=== PATIENT | male | born 1950 | race Caucasian/White ===

== ENCOUNTER 2018-06-03 11:29 | Observation (INO) ==
--- NOTE | 2018-06-03 11:49 | Emergency Department Report ---
Cardiac General HPI - General Stated Complaint: Decline in strength, easily fatigued, chest pressu Time Seen by Provider: 06/03/18 11:41 - History of Present Illness HPI narrative: 67-year-old male presents with chest pain and shortness of breath. Chest pain has been intermittent over the past several weeks. Shortness of breath is been increasing over the last couple months. His states that he has had worsening fatigue and exhaustion over the last couple months. Even his boss at work he said that he does not have near the energy that he did a couple months ago. He did have CABG 3 approximately 1.5 years ago. Prior to that had no significant medical issues and has had nothing new that he knows of since then. He does take metoprolol and atorvastatin. Otherwise is not on any prescription medications. He is concerned that the atorvastatin may be causing his issue. Also has concerned that when he rolls over during the chest pain episodes, he feels like pressure in his chest rolls with his heart. - Related Data Home Medications Medication Instructions Recorded Confirmed Aspirin [Jinny Chewable Aspirin] 81 mg PO DAILY 06/03/18 06/03/18 Atorvastatin [Lipitor] 40 mg PO HS 06/03/18 06/03/18 Metoprolol Tartrate [Lopressor] 12.5 mg PO BID 06/03/18 06/03/18 Allergies Allergy/AdvReac Type Severity Reaction Status Date / Time No Known Allergies Allergy Verified 06/03/18 11:56 Review of Systems All systems: reviewed and negative except as stated Physical Exam - Limitations Limitations: no limitations - General General appearance: alert - Normal Exams: Head:: Normocephalic without trauma Chest/Respirations:: Clear all perry, with good airflow, and symmetry bilaterally Cardiovascular:: Regular rate and rhythm, without murmur or gallop, Pulses 2+ all extremities, capillary refill, <2 seconds all extremities Abdomen:: Bowel sounds positive, soft, non-tender, non-distended, no hepatosplenomegaly, masses or bruits noted Neurological:: Patient is alert, and oriented, cranial nerves, motor/sensory/ cerebellar, exams w/o gross deficits, to observation Course Vital Signs Temperature 98.5 F 06/03/18 11:30 Pulse Rate 72 06/03/18 11:30 Respiratory Rate 16 06/03/18 11:30 Blood Pressure 118/73 06/03/18 11:30 Pulse Oximetry 95 06/03/18 11:30 Temperature 98.5 F 06/03/18 11:38 Pulse Rate 72 06/03/18 11:38 Respiratory Rate 16 06/03/18 11:38 Blood Pressure 118/73 06/03/18 11:41 Pulse Oximetry 95 06/03/18 11:38 Cardiac General - [facility] Narrative Medical decision making narrative: Peripheral IV placed with chest pain protocol. EKG obtained with V4 V5 minor ST depression. No other significant abnormalities noted showing acute ischemia. Cardiac enzymes returned negative with CBC and CMP appropriate. Due to patient' s history and concerns regarding EKG, I spoke with Dr. Camilo and he agreed patient was appropriate to admit. He will follow up for cardiac workup. - Differential Diagnosis Differential diagnosis: Likely: palpitations, anxiety - Lab Data Attestation: I reviewed the patient's lab results. Result diagrams: 06/03/18 11:57 06/03/18 11:57 Lab Results 06/03/18 06/03/18 Range/Units 11:57 11:57 WBC 10.0 (4.5-11.0) T/MM3 RBC 4.74 (4.50-5.90) M/MM3 Hgb 12.8 L (13.5-17.5) GM/DL Hct 39.2 L (41-53) % MCV 82.7 (80-100) UM3 MCH 27.0 (26-34) UUG MCHC 32.7 (31-37) GM/DL RDW Std Deviation 46.4 (36.9-50.2) FL Plt Count 262 (130-400) T/MM3 MPV 9.8 (9.4-12.4) UM3 Immature Gran % (Auto) 0.2 (0.0-0.5) % Neut % (Auto) 59.0 (33-66) % Lymph % (Auto) 29.4 (23-45) % Parke % (Auto) 7.6 (0-9.0) % Eos % (Auto) 3.6 (0-4) % Baso % (Auto) 0.2 (0-2) % Neut # (Auto) 5.9 (1.8-7.7) T/MM3 Lymph # (Auto) 2.9 (1-4.8) T/MM3 Parke # (Auto) 0.8 (0-0.8) T/MM3 Eos # (Auto) 0.4 (0-0.5) T/MM3 Baso # (Auto) 0.0 (0-0.2) T/MM3 Abs Immat Gran (auto) 0.02 (0.00-0.03) T/MM3 Turbidity < 20 (0-20) Sodium 144 (136-146) MEQ/L Potassium 4.3 (3.6-5) MEQ/L Chloride 107 (98-107) MEQ/L Carbon Dioxide 27 (22-30) MEQ/L Anion Gap 10 (5-15) meq/L BUN 17.0 (9-20) MG/DL Creatinine 0.9 (0.8-1.5) mg/dL Estimated Creat Clear Not performed GFR Calculation 85 (>60) mL/min BUN/Creatinine Ratio 19 (6-26) RATIO Glucose 123 H (75-110) MG/DL Calculated Osmolality 280 (261-280) MOSM/KG Calcium 9.0 (8.4-10.2) MG/DL Total Bilirubin 0.60 (0.20-1.30) MG/DL Icterus Index < 2 (0-7) AST 22 (17-59) U/L ALT 15 (1-50) U/L Alkaline Phosphatase 67 (38-126) U/L Troponin I < 0.012 (0-0.12) ng/ml NT-Pro-B Natriuret Pep 91.8 (0-175) pg/mL Total Protein 6.4 (6.3-8.2) g/dL Albumin 3.9 (3.5-5.0) g/dL Globulin 2.5 (2.4-3.6) G/DL Albumin/Globulin Ratio 1.6 (1.1-2.2) RATIO Lipase 72 (23-300) U/L Specimen Hemolysis < 15 (0-25) - Radiology Data Attestation: I reviewed the patient's radiology results. Disposition Clinical Impression: Chest pain, Coronary artery disease, History of [place] (myocardial infarction) [place] [facility] [place] Stable Prescriptions: No Action Atorvastatin [Lipitor] 40 mg PO HS Aspirin [Jinny Chewable Aspirin] 81 mg PO DAILY Metoprolol Tartrate [Lopressor] 12.5 mg PO BID Referrals: [facility] [Primary Care Provider] - Time of Disposition: 13:43 - Seen By: physician
[2018-06-03] MEDS ORDERED: SALINE FLUSH 10ml SYRINGE IVF PRN (11:57)
[2018-06-03] MEDS ORDERED: NITROGLYCERIN 0.4 MG SUBLINGUAL TABLET SL PRN (11:57)
[2018-06-03] MEDS ORDERED: GI COCKTAIL 30 ML PO ONE (11:57)
[2018-06-03] MEDS ORDERED: ASPIRIN 81 MG CHEWABLE TABLET PO ONE (11:57)
[2018-06-03] MEDS ORDERED: IOHEXOL 350mg/ml 75ml INJECTION ONE (12:22)
[2018-06-03] MEDS ORDERED: SALINE FLUSH 10ml SYRINGE ONE (12:22)
--- NOTE | 2018-06-03 12:44 | CT Scan Report ---
Indication: chest pain, dyspnea, weakness. PROCEDURE: CT angio pulm emboli: Encounter: Initial Comparison: None Technique: Axial CT pulmonary angiographic phase images were performed through the chest after the administration of intravenous contrast. Coronal and Sagittal MIP reconstructed images were created and reviewed. Automated Exposure Control and Iterative Reconstruction dose reducing techniques were utilized. Contrast: Omnipaque 350 70 mL Findings: Pulmonary arteries: Exam is diagnostic to the subsegmental pulmonary arterial level. No filling defects identified to suggest a pulmonary embolus. Other findings: Incidental note is made of an azygos fissure. Minimal dependent atelectasis. The lungs are otherwise clear. No acute pneumonia. No pleural effusion or pneumothorax. No concerning pulmonary nodules or masses. The central airways are patent. No axillary or mediastinal adenopathy. Heart size is normal. Prior CABG. The upper abdomen shows no acute findings. Small 9 mm splenic artery aneurysm. Probable parapelvic cysts in both kidneys. Impression: No pulmonary embolus or acute intrathoracic disease process seen. .
--- NOTE | 2018-06-03 13:53 | Cardiology History & Physical ---
History of Present Illness Chief complaint: chest pain and dyspnea HPI: Pt is a 67-year-old male with PMH of LA, CAD s/p CABG, and HTN presents with chest pain and shortness of breath. Chest pain has been intermittent over the past several weeks. the chest pain occurs randomly with rest and activity and becomes severe at times. Shortness of breath has been increasing over the last couple months and also occurs intermittently at rest and with activity. His states that he has had worsening fatigue and exhaustion over the last couple months. Even his boss at work has said that he does not have near the energy that he did a couple months ago. He did have CABG 3 approximately 1.5 years ago. Prior to that had no significant medical issues and has had nothing new that he knows of since then. He does take metoprolol and atorvastatin. Otherwise he is not on any prescription medications. He is concerned that the atorvastatin may be causing his issue. Also has concern that when he rolls over during the chest pain episodes, he feels like pressure in his chest rolls with his heart. He denies n/v, diaphoresis and palpitations, but does state he has periods of dizziness intermittently while experiencing his chest pain and soa. Review of Systems - Constitutional Constitutional: Present: fatigue, weakness - EENMT Eyes: Absent: change in vision Mouth/Throat: Absent: sore throat - Cardiovascular Cardiovascular: Present: dyspnea on exertion, heart murmur. Absent: chest pain , palpitations, syncope, orthopnea, edema - Respiratory Respiratory: Present: cough, dyspnea, dyspnea on exertion. Absent: wheezing, pain on inspiration - Gastrointestinal Gastrointestinal: Absent: constipation, diarrhea, nausea, vomiting - Genitourinary Genitourinary: Absent: dysuria, urinary frequency - Musculoskeletal Musculoskeletal: Present: back pain, muscle weakness. Absent: abnormal gait, muscle cramps - Integumentary/Breasts Integumentary: Absent: rash, wounds - Neurological Neurological: Present: weakness. Absent: abnormal speech, confusion - Psychiatric Psychiatric: Absent: anxiety, depression - Endocrine Endocrine: Absent: cold intolerance, heat intolerance, palpitations - Hematologic/Lymphatic Hematologic/Lymphatic: Absent: easy bleeding, easy bruising PFSH HTN CAD sp CABG 1.5 years ago Surgical History: appendectomy. cholecystectomy Family History: Patient is adopted Brother - Kidney Cancer and Parkinsons - Social History Smoking status: Never smoker Substance use type: does not use Alcohol intake: never Current residence: Apartment/Private Home Medications Home Medications Medication Instructions Recorded Confirmed Type Aspirin [Jinny Chewable Aspirin] 81 mg PO DAILY 06/03/18 06/03/18 History Atorvastatin [Lipitor] 40 mg PO HS 06/03/18 06/03/18 History Lisinopril [Prinivil] 10 mg PO DAILY #30 tab 06/04/18 Rx Nitroglycerin [Nitrostat] 0.4 mg SL Q5MIN3 PRN #20 tab 06/04/18 Rx Pantoprazole Sodium [Protonix] 20 mg PO ACB30 #30 tablet. 06/04/18 Rx Allergies Allergy/AdvReac Type Severity Reaction Status Date / Time No Known Allergies Allergy Verified 06/03/18 11:56 Exam Vital signs: Temperature 98.5 F 06/03/18 11:38 Pulse Rate 72 06/03/18 11:38 Respiratory Rate 16 06/03/18 11:38 Blood Pressure 118/73 06/03/18 11:41 Pulse Oximetry 95 06/03/18 11:38 - Constitutional no acute distress, well nourished, well developed, cooperative - Routine HEENT Exam Head: Present: normocephalic, atraumatic Eye: Present: EOMI, PERRL ENT: Present: mucous membranes moist - Routine Neck Exam Present: supple, trachea midline. Absent: JVD, carotid bruit - Routine Chest/Breast/Axilla Exam Chest wall: Absent: tenderness - Routine Respiratory Exam Present: CTA bilaterally. Absent: accessory muscle use, rhonchi, stridor, wheezes, crackles - Routine Cardiovascular Exam Present: RRR, S1, S2, bradycardia. Absent: no murmur, gallop, rubs, JVD Comments: HR 56 - Routine Abdominal Exam Present: soft, normoactive bowel sounds, non distended, non tender. Absent: guarding - Routine Extremities Exam Present: pulses intact, normal capillary refill. Absent: cyanosis, clubbing, no edema - Routine Skin Exam Present: intact, dry, warm. Absent: wounds, rash - Routine Neurological Exam Present: alert, oriented X3, CN II-XII intact - Routine Psychiatric Exam Present: normal affect, cooperative Results 06/03/18 15:44 06/03/18 15:44 Cardiac Enzymes 06/03/18 Range/Units 11:57 AST 22 (17-59) U/L Troponin I < 0.012 (0-0.12) ng/ml CBC 06/03/18 Range/Units 11:57 WBC 10.0 (4.5-11.0) T/MM3 RBC 4.74 (4.50-5.90) M/MM3 Hgb 12.8 L (13.5-17.5) GM/DL Hct 39.2 L (41-53) % Plt Count 262 (130-400) T/MM3 Neut # (Auto) 5.9 (1.8-7.7) T/MM3 Lymph # (Auto) 2.9 (1-4.8) T/MM3 Stone # (Auto) 0.8 (0-0.8) T/MM3 Eos # (Auto) 0.4 (0-0.5) T/MM3 Baso # (Auto) 0.0 (0-0.2) T/MM3 Comprehensive Metabolic Panel 06/03/18 Range/Units 11:57 Sodium 144 (136-146) MEQ/L Potassium 4.3 (3.6-5) MEQ/L Chloride 107 (98-107) MEQ/L Carbon Dioxide 27 (22-30) MEQ/L BUN 17.0 (9-20) MG/DL Creatinine 0.9 (0.8-1.5) mg/dL Glucose 123 H (75-110) MG/DL Calcium 9.0 (8.4-10.2) MG/DL AST 22 (17-59) U/L ALT 15 (1-50) U/L Alkaline Phosphatase 67 (38-126) U/L Total Protein 6.4 (6.3-8.2) g/dL Albumin 3.9 (3.5-5.0) g/dL Intake and Output 06/02/18 06/03/18 06/03/18 22:59 06:59 14:59 Other: Weight 86.1 kg Patient Weight 06/04/18 06:59 Weight 86.1 kg - Imaging and Cardiology Echo: pending EKG results: report reviewed - EKG Interpretation EKG: sinus rhythm EKG shows: sinus rhythm EKG interpretations - EKG EKG results cardiology: sinus rhythm EKG shows: sinus rhythm - Blocks, axis, hypertrophy, ST abn AV and intraventricular conduction: 1 AV block Repolarization changes or abnormalities: nonspecific abnormality, ST segment, and/or T wave - LA, pacemaker, normal Myocardial infarction: inferior LA (old age indeterminate) Hospital Course This is a general summary of the patient's hospital course. For more details refer to the complete medical record. Time spent with patient: less than 15 minutes Resuscitation Status: Full Code Assessment and Plan - Attestation Attestation Narrative: 06/11/18 16:04 Recommendation After examining the patient I agree with the above assessment. I am involved in the formulation of the patient's plan of care. - Assessment and Plan (1) Dyspnea Status: Resolved (2) Hypertension Status: Chronic (3) Chest pain Status: Resolved (4) Coronary artery disease Status: Chronic (5) History of LA (myocardial infarction) Status: Chronic - Assessment and Plan Dyspnea ECG: NSR, 1st degree AVB, inferior infarct, age undetermined. No acute ischemia CTA of chest negative Echo pending Initial troponin WNL, will trend. RCAT O2 prn to maintain sat >90% Chest Pain ECG: NSR, 1st degree AVB, inferior infarct, age undetermined. No acute ischemia CTA of chest negative Echo pending Initial troponin WNL, will trend Continue to monitor on tele CAD s/p CABG X 3 Continue ASA, BB and Statin Hypertension Continue BB History of Myocardial Infarction Continue BB, ASA and statin
[2018-06-03 16:03] VITALS: BMI 27.4
[2018-06-03] MEDS: ENOXAPARIN 100 MG/ML INJECTION SQ SCH ×2 (16:29→21:33)
[2018-06-03] MEDS ORDERED: MORPHINE SULFATE 2mg INJECTION IVP PRN (17:35)
--- NOTE | 2018-06-03 19:04 | Echocardiogram ---
DATE OF PROCEDURE June 03, 2018 This is a two-dimensional echo with spectral Doppler, color-flow and M-mode. It was obtained in a patient with chest pain. Left atrial dimension is normal. Left ventricular end-diastolic dimension is normal. Left ventricular wall thickness is normal. LV systolic function is normal with ejection fraction of 60%. Right atrium is normal. Right ventricle is normal. Aortic root dimension is normal. Mitral valve is morphologically normal with trace of mitral regurgitation. Aortic valve is a trileaflet structure with no stenosis or insufficiency. Tricuspid valve shows mild tricuspid regurgitation with low estimated pulmonary artery systolic pressure of 11. Pulmonary valve shows mild pulmonary insufficiency. There is no pericardial effusion. IMPRESSION 1. Normal LV systolic function with ejection fraction of about 60%. 2. Trace of mitral regurgitation. 3. Mild tricuspid regurgitation with low estimated pulmonary artery systolic pressure of 11. 4. Mild pulmonary insufficiency. MTDD
[2018-06-03] MEDS: LISINOPRIL 10 MG TABLET PO SCH (19:14)
[2018-06-03] MEDS: PANTOPRAZOLE 20 MG TABLET PO SCH (19:15)
[2018-06-03] MEDS ORDERED: ATORVASTATIN 40 MG TABLET PO SCH (21:00)
[2018-06-04] MEDS: PANTOPRAZOLE 20 MG TABLET PO SCH (06:05)
[2018-06-04 07:22] VITALS: BP 118/67; RESP 18; TEMP 97.1; O2SAT 96
[2018-06-04] MEDS ORDERED: ASPIRIN 81 MG CHEWABLE TABLET PO SCH (09:00)
[2018-06-04] MEDS: LISINOPRIL 10 MG TABLET PO SCH (09:20)
[2018-06-04] MEDS: ENOXAPARIN 100 MG/ML INJECTION SQ SCH (09:21)
[2018-06-04 10:37] VITALS: PULSE 58
--- NOTE | 2018-06-04 12:35 | Discharge Summary ---
<Selin Stuart - Last Filed: 06/04/18 12:40> Discharge Information Date of admission: 06/03/18 14:02 Anticipated date of discharge: 06/04/18 Attending Physician: Rohan Camilo MD Primary care physician: [facility] - Discharge Diagnosis (1) Chest pain Status: Resolved (2) Coronary artery disease Status: Chronic (3) History of WA (myocardial infarction) Status: Chronic (4) Dyspnea Status: Resolved (5) Hypertension Status: Chronic Problems Reviewed?: Yes atypical chest pain - Laboratory Labs: 06/03/18 15:44 06/03/18 15:44 History of Present Illness HPI: Pt is a 67-year-old male with PMH of [place], CAD s/p CABG, and HTN presents with chest pain and shortness of breath. Chest pain has been intermittent over the past several weeks. the chest pain occurs randomly with rest and activity and becomes severe at times. Shortness of breath has been increasing over the last couple months and also occurs intermittently at rest and with activity. His states that he has had worsening fatigue and exhaustion over the last couple months. Even his boss at work has said that he does not have near the energy that he did a couple months ago. He did have CABG 3 approximately 1.5 years ago. Prior to that had no significant medical issues and has had nothing new that he knows of since then. He does take metoprolol and atorvastatin. Otherwise he is not on any prescription medications. He is concerned that the atorvastatin may be causing his issue. Also has concern that when he rolls over during the chest pain episodes, he feels like pressure in his chest rolls with his heart. He denies n/v, diaphoresis and palpitations, but does state he has periods of dizziness intermittently while experiencing his chest pain and soa. Hospital Course This is a general summary of the patient's hospital course. For more details refer to the complete medical record. Hospital course: Pt remained chest pain free. He denies his usual nocturnal chest pain last night. Troponins negative. ECG this AM no changes from yesterday. Pt bp mildly elevated yesterday and he reported fatigue with BB use. DC'd metoprolol and initiated lisinopril 10mg daily. Monitor bp daily, log and take to his cardiology appt home in [place] on 06/08/18. Protonix started last night and dosed again this am. Will send home on omeprazole 20mg daily. Pt ed on GERD symptoms management, recommend further OP work up of his GI system. Follow up with PCP and bundle tier upon arrival home to [place]. Time spent with patient: less than 15 minutes Exam Vital signs: Temperature 97.1 F 06/04/18 07:21 Pulse Rate 58 L 06/04/18 10:00 Respiratory Rate 18 06/04/18 07:21 Blood Pressure 118/67 06/04/18 07:21 Pulse Oximetry 96 06/04/18 07:21 - Constitutional no acute distress, well developed - Routine HEENT Exam Head: Present: normocephalic Eye: Present: PERRL ENT: Present: mucous membranes moist - Routine Neck Exam Absent: JVD, carotid bruit - Routine Chest/Breast/Axilla Exam Chest wall: Absent: tenderness - Routine Respiratory Exam Present: CTA bilaterally - Routine Cardiovascular Exam Present: RRR, no murmur - Routine Abdominal Exam Present: soft, normoactive bowel sounds - Routine Skin Exam Present: intact - Routine Neurological Exam Present: alert, oriented X3 - Routine Psychiatric Exam Present: normal affect, normal thought process Results 06/03/18 15:44 06/03/18 15:44 Cardiac Enzymes 06/03/18 Range/Units 15:44 Troponin I < 0.012 (0-0.12) ng/ml Lipids 06/03/18 Range/Units 15:44 Triglycerides 131 (40-160) mg/dL Cholesterol 105 L (132-199) mg/dL HDL Cholesterol 32 L (40-60) mg/dL Cholesterol/HDL Ratio 3.3 (0-5.0) RATIO CBC 06/03/18 Range/Units 15:44 WBC 9.9 (4.5-11.0) T/MM3 RBC 4.62 (4.50-5.90) M/MM3 Hgb 12.5 L (13.5-17.5) GM/DL Hct 38.3 L (41-53) % Plt Count 239 (130-400) T/MM3 Comprehensive Metabolic Panel 06/03/18 Range/Units 15:44 Sodium 144 (136-146) MEQ/L Potassium 4.1 (3.6-5) MEQ/L Chloride 107 (98-107) MEQ/L Carbon Dioxide 27 (22-30) MEQ/L BUN 16.0 (9-20) MG/DL Creatinine 0.8 (0.8-1.5) mg/dL Glucose 85 (75-110) MG/DL Calcium 8.6 (8.4-10.2) MG/DL Intake and Output 06/03/18 06/04/18 06/04/18 22:59 06:59 14:59 Intake Total 200 / 200 240 / 240 Balance 200 / 200 240 / 240 Intake: Oral 200 / 200 240 / 240 Other: Urine Appearance Clear Urine Color Yellow Urine Odor Normal # Voids 1 2 4 Weight 86.7 kg 86.1 kg Patient Weight 06/05/18 06:59 Weight 86.1 kg - Imaging and Cardiology Echo: report reviewed EKG results: image reviewed Imaging & Cardiology Narrative: 06/04/18 12:41 ECHO 06/03/18: IMPRESSION 1. Normal LV systolic function with ejection fraction of about 60%. 2. Trace of mitral regurgitation. 3. Mild tricuspid regurgitation with low estimated pulmonary artery systolic pressure of 11. 4. Mild pulmonary insufficiency. - EKG Interpretation EKG: sinus rhythm, no acute changes Discharge Plan - Med Rec/Dispo Truven Instructions: Myocardial Infarction (DC), Chest Pain (DC) Prescriptions: New Lisinopril [Prinivil] 10 mg PO DAILY #30 tab Pantoprazole Sodium [Protonix] 20 mg PO ACB30 #30 tablet. Nitroglycerin [Nitrostat] 0.4 mg SL Q5MIN3 PRN #20 tab PRN Reason: Chest Pain Continue Atorvastatin [Lipitor] 40 mg PO HS Aspirin [Jinny Chewable Aspirin] 81 mg PO DAILY Discontinued Metoprolol Tartrate [Lopressor] 12.5 mg PO BID - Disposition 01 Discharged Home, Self-Care - Dismissal Complete Discharge Instructions are:: Complete <Rohan Camilo - Last Filed: 06/11/18 16:05> Discharge Information Date of admission: 06/03/18 14:02 Attending Physician: Rohan Camilo MD Primary care physician: [facility] - Discharge Diagnosis (1) Dyspnea Status: Resolved (2) Hypertension Status: Chronic (3) Chest pain Status: Resolved (4) Coronary artery disease Status: Chronic (5) History of [place] (myocardial infarction) Status: Chronic - Laboratory Labs: 06/03/18 15:44 08/09/18 15:44 Hospital Course This is a general summary of the patient's hospital course. For more details refer to the complete medical record. Exam Vital signs: Temperature 97.1 F 06/04/18 07:21 Pulse Rate 58 L 06/04/18 10:00 Respiratory Rate 18 06/04/18 07:21 Blood Pressure 118/67 06/04/18 07:21 Pulse Oximetry 96 06/04/18 07:21 Results 06/03/18 15:44 06/03/18 15:44 Attestation Narriative - Attestation Attestation Narrative: 06/11/18 16:05 Recommendation After examining the patient I agree with the above assessment. I am involved in the formulation of the patient's plan of care.
== END 2018-06-04 13:40 | disposition home or self-care (01) ==
LOC: ED 11:29 → EDHOLD 11:29 → MED 14:35
PROVIDERS: ADMIT Internal Medicine Cardiovascular Disease; ATTEND Internal Medicine Cardiovascular Disease